=== PATIENT | female | born 2000 | race Caucasian/White ===

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

== ENCOUNTER → 2021-01-17 | Outpatient (CLI) | payer OTHER, MEDICAID ==
[2021-01-17 13:37] LABS: BASO % 0.5 % (0.0-1.0); EOS # 0.3 10^3/uL (0.0-0.5); EOS % 5.7 % (0.0-3.0); HEMATOCRIT 41.6 % (36.0-47.0); HEMOGLOBIN 13.4 g/dl (12.0-15.5); LYMPH # 2.4 10^3/uL (1.5-5.0); LYMPH % 40.9 % (24.0-44.0); MEAN CORPUSCULAR HEMOGLOBIN 27.4 pg (27.0-33.0); MEAN CORPUSCULAR HGB CONC 32.2 g/dl (32.0-36.5); MEAN CORPUSCULAR VOLUME 85.1 fl (80.0-96.0); MONO # 0.3 10^3/uL (0.0-0.8); MONO % 4.6 % (2.0-8.0); NEUTROPHILS # 2.9 10^3/uL (1.5-8.5); NEUTROPHILS % 48.1 % (36.0-66.0); PLATELET COUNT, AUTOMATED 265 10^3/uL (150-450); RED BLOOD COUNT 4.89 10^6/uL (4.00-5.40); WHITE BLOOD COUNT 5.9 10^3/uL (4.0-10.0)
[2021-01-17 14:17] LABS: ALBUMIN 3.4 GM/DL (3.2-5.2); ALT/SGPT 21 U/L (12-78); BILIRUBIN,TOTAL 0.5 MG/DL (0.2-1.0); BLOOD UREA NITROGEN 7 MG/DL (7-18); CALCIUM LEVEL 9.3 MG/DL (8.5-10.1); CARBON DIOXIDE LEVEL 27 MEQ/L (21-32); CHLORIDE LEVEL 105 MEQ/L (98-107); FERRITIN 12 NG/ML (8-252); FREE T4 1.13 NG/DL (0.78-1.33); GLUCOSE, FASTING 115 MG/DL (70-100); IRON (FE) 97 UG/DL (50-170); PERCENT SATURATION 22.7 % (13.2-45.0); SODIUM LEVEL 139 MEQ/L (136-145); THYROID PEROXIDASE ANTIBODY 168.4 U/ML (<60.0); TOTAL IRON BINDING CAPACITY 428 UG/DL (250-450); TOTAL PROTEIN 6.8 GM/DL (6.4-8.2)
[2021-01-17 14:47] LABS: HEMOGLOBIN A1c 5.4 %
== END ==
LOC: M PLALAB 09:27
PROVIDERS: ATTEND Pediatrics
DX: R00.2 Palpitations (principal); E11.9 Type 2 diabetes mellitus without complications; K90.0 Celiac disease

== ENCOUNTER → 2021-03-29 | Outpatient (CLI) | payer OTHER, MEDICAID ==
[2021-03-29 13:17] LABS: HEMATOCRIT 43.5 % (36.0-47.0); HEMOGLOBIN 14.1 g/dl (12.0-15.5); MEAN CORPUSCULAR HEMOGLOBIN 28.2 pg (27.0-33.0); MEAN CORPUSCULAR HGB CONC 32.4 g/dl (32.0-36.5); PLATELET COUNT, AUTOMATED 303 10^3/uL (150-450); WHITE BLOOD COUNT 5.8 10^3/uL (4.0-10.0)
[2021-03-29 13:49] LABS: PERCENT SATURATION 26.1 % (13.2-45.0)
== END ==
LOC: M PLALAB 12:03
PROVIDERS: ATTEND Internal Medicine Gastroenterology
DX: R10.9 Unspecified abdominal pain (principal); R12 Heartburn; K90.0 Celiac disease

== ENCOUNTER → 2021-06-03 | Outpatient (REF) | payer OTHER, MEDICAID | LOC: M LAB REF 11:23 | PROVIDERS: ATTEND Pediatrics | DX: R09.81 Nasal congestion (principal) ==

== ENCOUNTER 2021-06-07 07:57 | Outpatient (CLI) | payer OTHER, MEDICAID ==
[~2021-06-07 07:57] MED LIST changes: +ALBUTEROL 90 MCG/ACT 8GM HFA INHALER INH PRN; +ALBUTEROL SULFATE 2.5 MG/0.5 ML INH NEB SOLN INH PRN; +EPINEPHrine INJ 1 MG/ML 1ML AMP IM PRN; -GASTROGRAFIN SOLUTION 30ML (Q9963) As Ordered ONE; -ISOVUE-370 76% 100ML VIAL As Ordered ONE; +NS 1,000 ML IV SCH; +diphenhydrAMINE 50MG/ML VIAL (J1200) IV PRN; +methylPREDNISolone 125MG 2ML VIAL IV PRN
[2021-06-07] MEDS ORDERED: CASIRIVIMAB/IMDEVIMAB 1,200 MG in NS 250 ML IV ONE (08:00)
[2021-06-07] MEDS ORDERED: CASIRIVIMAB (REGN10933) 600 MG, IMDEVIMAB (REGN10987) 600 MG in NS 250 ML IV ONE (08:00)
[2021-06-07] MEDS ORDERED: ACETAMINOPHEN TAB 650MG DOSE (2X325MG) PO ONE (08:00)
[2021-06-07 08:23] VITALS: BP 132/82
[2021-06-07 09:40] VITALS: BP 122/73
[2021-06-07 10:08] VITALS: BP 124/76
[2021-06-07 11:16] VITALS: BP 128/68
== END 2021-06-07 11:10 | disposition home or self-care (01) ==
LOC: M OPCLI4PR 07:57 → M MS4PR 08:11 → M OPCLI4PR 11:10
PROVIDERS: ATTEND Pediatrics
DX: U07.1 COVID-19 (principal)

== ENCOUNTER → 2021-06-10 | Outpatient (REF) | payer OTHER, MEDICAID | LOC: M LAB REF 16:54 | PROVIDERS: ATTEND Internal Medicine Nephrology | DX: E83.42 Hypomagnesemia (principal) ==

== ENCOUNTER → 2021-08-11 | Outpatient (CLI) | payer OTHER, MEDICAID ==
[2021-08-11 10:58] LABS: BASO % 0.4 % (0.0-1.0); EOS # 0.4 10^3/uL (0.0-0.5); HEMATOCRIT 44.2 % (36.0-47.0); HEMOGLOBIN 14.2 g/dl (12.0-15.5); LYMPH # 2.7 10^3/uL (1.5-5.0); LYMPH % 36.8 % (24.0-44.0); MEAN CORPUSCULAR HEMOGLOBIN 28.4 pg (27.0-33.0); MEAN CORPUSCULAR HGB CONC 32.1 g/dl (32.0-36.5); MEAN CORPUSCULAR VOLUME 88.4 fl (80.0-96.0); MONO # 0.3 10^3/uL (0.0-0.8); MONO % 3.9 % (2.0-8.0); NEUTROPHILS # 3.9 10^3/uL (1.5-8.5); NEUTROPHILS % 52.6 % (36.0-66.0); PLATELET COUNT, AUTOMATED 296 10^3/uL (150-450); WHITE BLOOD COUNT 7.4 10^3/uL (4.0-10.0)
[2021-08-11 11:16] LABS: HEMOGLOBIN A1c 5.6 %
[2021-08-11 11:33] LABS: ALBUMIN 3.4 GM/DL (3.2-5.2); ALT/SGPT 23 U/L (12-78); BILIRUBIN,TOTAL 0.6 MG/DL (0.2-1.0); BLOOD UREA NITROGEN 12 MG/DL (7-18); CALCIUM LEVEL 9.2 MG/DL (8.5-10.1); CARBON DIOXIDE LEVEL 28 MEQ/L (21-32); CHLORIDE LEVEL 104 MEQ/L (98-107); CREATININE FOR GFR 0.59 MG/DL (0.55-1.30); FERRITIN 15 NG/ML (8-252); FREE T4 1.17 NG/DL (0.78-1.33); GLUCOSE, FASTING 89 MG/DL (70-100); IRON (FE) 80 UG/DL (50-170); POTASSIUM SERUM 4.5 MEQ/L (3.5-5.1); SODIUM LEVEL 138 MEQ/L (136-145); TOTAL PROTEIN 7.3 GM/DL (6.4-8.2)
== END ==
LOC: M LAB 09:41
PROVIDERS: ATTEND Pediatrics
DX: K90.0 Celiac disease (principal); E06.9 Thyroiditis, unspecified; E08.21 Diabetes mellitus due to underlying condition with diabetic nephropathy; E61.1 Iron deficiency

== ENCOUNTER → 2021-12-18 | Outpatient (REF) | payer OTHER | LOC: M PLALAB 09:59 | PROVIDERS: ATTEND Advanced Practice Midwife | DX: N39.9 Disorder of urinary system, unspecified (principal) ==

== ENCOUNTER → 2021-12-19 | Outpatient (REF) | payer SELFPAY | LOC: M SFHCWAGY 11:05 | PROVIDERS: ATTEND Advanced Practice Midwife | DX: R30.0 Dysuria (principal) ==

== ENCOUNTER → 2022-02-20 | Outpatient (CLI) | payer BC, MEDICAID ==
[~2022-02-20] MED LIST changes: -ALBUTEROL 90 MCG/ACT 8GM HFA INHALER INH PRN; -ALBUTEROL SULFATE 2.5 MG/0.5 ML INH NEB SOLN INH PRN; +CETI-24; -EPINEPHrine INJ 1 MG/ML 1ML AMP IM PRN; +ESOM40CA35; +LOSA25TA13; +METF500T13 PO; +METO1TAB7; +MONT10TA97; -NS 1,000 ML IV SCH; +SETL1TAB; -diphenhydrAMINE 50MG/ML VIAL (J1200) IV PRN; -methylPREDNISolone 125MG 2ML VIAL IV PRN
[2022-02-20 17:12] LABS: BASO # 0.1 10^3/uL (0.0-0.2); BASO % 0.8 % (0.0-1.0); EOS # 0.5 10^3/uL (0.0-0.5); EOS % 5.9 % (0.0-3.0); HEMATOCRIT 42.6 % (36.0-47.0); HEMOGLOBIN 13.6 g/dl (12.0-15.5); LYMPH # 3.5 10^3/uL (1.5-5.0); LYMPH % 44.8 % (24.0-44.0); MEAN CORPUSCULAR HEMOGLOBIN 27.5 pg (27.0-33.0); MEAN CORPUSCULAR HGB CONC 31.9 g/dl (32.0-36.5); MEAN CORPUSCULAR VOLUME 86.2 fl (80.0-96.0); MONO # 0.5 10^3/uL (0.0-0.8); MONO % 6.7 % (2.0-8.0); NEUTROPHILS # 3.2 10^3/uL (1.5-8.5); NEUTROPHILS % 41.7 % (36.0-66.0); PLATELET COUNT, AUTOMATED 303 10^3/uL (150-450); RED BLOOD COUNT 4.94 10^6/uL (4.00-5.40); WHITE BLOOD COUNT 7.8 10^3/uL (4.0-10.0)
[2022-02-20 17:45] LABS: ALBUMIN 3.6 GM/DL (3.2-5.2); ALT/SGPT 24 U/L (12-78); BILIRUBIN,TOTAL 0.4 MG/DL (0.2-1.0); BLOOD UREA NITROGEN 9 MG/DL (7-18); C REACTIVE PROTEIN QUANTITATIV 0.99 MG/DL (0.00-0.30); CALCIUM LEVEL 10.1 MG/DL (8.5-10.1); CARBON DIOXIDE LEVEL 26 MEQ/L (21-32); CHLORIDE LEVEL 106 MEQ/L (98-107); CREATININE FOR GFR 0.58 MG/DL (0.55-1.30); FREE T4 1.03 NG/DL (0.78-1.33); GLUCOSE, FASTING 96 MG/DL (70-100); IRON (FE) 88 UG/DL (50-170); PERCENT SATURATION 19.8 % (13.2-45.0); POTASSIUM SERUM 4.4 MEQ/L (3.5-5.1); SODIUM LEVEL 140 MEQ/L (136-145); TOTAL IRON BINDING CAPACITY 445 UG/DL (250-450); TOTAL PROTEIN 7.1 GM/DL (6.4-8.2)
== END ==
LOC: M PLALAB 14:37
PROVIDERS: ATTEND Physician Assistant
DX: K90.0 Celiac disease (principal); J30.2 Other seasonal allergic rhinitis; I47.9 Paroxysmal tachycardia, unspecified; R79.89 Other specified abnormal findings of blood chemistry

== ENCOUNTER → 2022-02-20 | Outpatient (CLI) | payer BC, MEDICAID | LOC: M PLALAB 14:39 | PROVIDERS: ATTEND Physician Assistant | DX: E11.65 Type 2 diabetes mellitus with hyperglycemia (principal) ==

== ENCOUNTER → 2022-03-17 | Outpatient (CLI) | payer OTHER, MEDICAID ==
[~2022-03-17] MED LIST changes: +CLAR5TAB11 PO
== END ==
LOC: M LABSMTC 10:58
PROVIDERS: ATTEND Anesthesiology
DX: Z01.812 Encounter for preprocedural laboratory examination (principal)

== ENCOUNTER 2022-03-21 06:11 | Day surgery (SDC) | payer MEDICAID, OTHER ==
[~2022-03-21] VITALS: Ht 160 cm; Wt 81.2 kg
[2022-03-21] MEDS ORDERED: LR 1,000 ML IV SCH ×3 (06:45→09:45)
[2022-03-21] MEDS ORDERED: LIDOCAINE W/EPINEPHRINE 1% 20ML VIAL As Ordered ONE (07:14)
[2022-03-21] MEDS ORDERED: LIDOCAINE 2% 100MG/5ML SDV (FOR ANES.) As Ordered ONE (07:49)
[2022-03-21] MEDS ORDERED: ROCURONIUM BROMIDE 50 MG/5 ML VIAL As Ordered ONE (07:49)
[2022-03-21] MEDS ORDERED: dexameTHASONE 4 MG/ML 1ML VIAL (J1100 PER 1MG) As Ordered ONE (07:49)
[2022-03-21] MEDS ORDERED: MIDAZOLAM INJ 2MG/2ML VIAL (J2250 PER 1MG) As Ordered ONE (07:49)
[2022-03-21] MEDS ORDERED: ONDANSETRON 4MG 2ML VIAL As Ordered ONE (07:49)
[2022-03-21] MEDS ORDERED: fentaNYL 250 MCG/5 ML INJECTION As Ordered ONE (07:49)
[2022-03-21] MEDS ORDERED: SUGAMMADEX SODIUM 500 MG/5 ML VIAL (BRIDION) As Ordered ONE (07:49)
[2022-03-21] MEDS ORDERED: PHENYLephrine 500MCG 5ML (100MCG/ML) SYRINGE As Ordered ONE (07:49)
[2022-03-21] MEDS ORDERED: propofoL 200 MG/20 ML VIAL As Ordered ONE (07:49)
[2022-03-21] MEDS ORDERED: OXYMETAZOLINE 0.05% NASAL SPRAY (AFRIN) As Ordered ONE (08:05)
[2022-03-21] MEDS ORDERED: fentaNYL 100 MCG/2 ML INJECTION IV PRN (08:15)
[2022-03-21] MEDS ORDERED: ONDANSETRON 4MG 2ML VIAL IV PRN (08:15)
[2022-03-21] MEDS ORDERED: HYDROMORPHONE HCL 0.5 MG/ 0.5 ML SYRINGE (J1170 PER 1) IV PRN (08:15)
[2022-03-21] MEDS ORDERED: oxyCODONE 5MG TAB PO PRN (08:15)
[2022-03-21] MEDS ORDERED: LIDOCAINE 5% OINT 30GM TUBE As Ordered ONE (08:18)
[2022-03-21 09:26] VITALS: BP 139/82
== END 2022-03-21 09:40 | disposition home or self-care (01) ==
LOC: M SDC 06:11
PROVIDERS: ATTEND Dentist Oral and Maxillofacial Surgery
DX: K01.1 Impacted teeth (principal); K21.9 Gastro-esophageal reflux disease without esophagitis; E11.9 Type 2 diabetes mellitus without complications; Z79.899 Other long term (current) drug therapy; F81.9 Developmental disorder of scholastic skills, unspecified; Z91.010 Allergy to peanuts; Z91.018 Allergy to other foods; Z79.84 Long term (current) use of oral hypoglycemic drugs; F41.9 Anxiety disorder, unspecified
CPT/HCPCS: 81025; 88300; D7220; D9223; J1100; J2250; J2370; J2405; J3010

== ENCOUNTER → 2022-05-21 | Outpatient (REF) | payer BC | LOC: M SFHCPLAZ 09:53 | PROVIDERS: ATTEND Physician Assistant | DX: R19.7 Diarrhea, unspecified (principal) ==

== ENCOUNTER → 2022-05-22 | Outpatient (CLI) | payer BC, MEDICAID ==
[~2022-05-22] MED LIST changes: +GASTROGRAFIN SOLUTION 30ML (Q9963) As Ordered ONE; +ISOVUE-370 76% 100ML VIAL As Ordered ONE
== END ==
LOC: M RAD 12:01
PROVIDERS: ATTEND Physician Assistant
DX: R19.7 Diarrhea, unspecified (principal); R10.9 Unspecified abdominal pain

== ENCOUNTER → 2022-06-17 | Outpatient (CLI) | payer BC, MEDICAID ==
[~2022-06-17] MED LIST changes: -GASTROGRAFIN SOLUTION 30ML (Q9963) As Ordered ONE; -ISOVUE-370 76% 100ML VIAL As Ordered ONE
[2022-06-17 17:58] LABS: BASO # 0.1 10^3/uL (0.0-0.2); BASO % 0.6 % (0.0-1.0); EOS # 0.4 10^3/uL (0.0-0.5); EOS % 5.4 % (0.0-3.0); HEMATOCRIT 42.5 % (36.0-47.0); HEMOGLOBIN 13.4 g/dl (12.0-15.5); LYMPH # 3.4 10^3/uL (1.5-5.0); LYMPH % 43.8 % (24.0-44.0); MEAN CORPUSCULAR HEMOGLOBIN 27.6 pg (27.0-33.0); MEAN CORPUSCULAR HGB CONC 31.5 g/dl (32.0-36.5); MEAN CORPUSCULAR VOLUME 87.6 fl (80.0-96.0); MONO # 0.4 10^3/uL (0.0-0.8); MONO % 5.5 % (2.0-8.0); NEUTROPHILS # 3.4 10^3/uL (1.5-8.5); NEUTROPHILS % 44.4 % (36.0-66.0); PLATELET COUNT, AUTOMATED 345 10^3/uL (150-450); RED BLOOD COUNT 4.85 10^6/uL (4.00-5.40); WHITE BLOOD COUNT 7.8 10^3/uL (4.0-10.0)
[2022-06-17 19:03] LABS: ALBUMIN 3.3 GM/DL (3.2-5.2); ALT/SGPT 24 U/L (12-78); BILIRUBIN,TOTAL 0.3 MG/DL (0.2-1.0); BLOOD UREA NITROGEN 13 MG/DL (7-18); CALCIUM LEVEL 9.4 MG/DL (8.5-10.1); CARBON DIOXIDE LEVEL 25 MEQ/L (21-32); CHLORIDE LEVEL 103 MEQ/L (98-107); FREE T3 2.7 PG/ML (2.9-4.5); GLUCOSE, FASTING 129 MG/DL (70-100); IRON (FE) 51 UG/DL (50-170); PERCENT SATURATION 10.1 % (13.2-45.0); POTASSIUM SERUM 4.5 MEQ/L (3.5-5.1); SODIUM LEVEL 138 MEQ/L (136-145); TOTAL IRON BINDING CAPACITY 505 UG/DL (250-450); TOTAL PROTEIN 7.5 GM/DL (6.4-8.2)
[2022-06-17 19:37] LABS: TOTAL 25(OH) VITAMIN D 28.3 NG/ML (30.0-100.0); VITAMIN B12 LEVEL 207 PG/ML (247-911)
== END ==
LOC: M PLALAB 16:01
PROVIDERS: ATTEND Physician Assistant
DX: R30.0 Dysuria (principal)

== ENCOUNTER → 2022-07-31 | Outpatient (CLI) | payer BC, MEDICAID ==
[~2022-07-31] MED LIST changes: +E-Z-GAS II EFFERVESCENT PACKET (SODIUM BICARB./CITRIC ACID/SIMETHICONE) As Ordered ONE; +E-Z-HD 98% w/w 340GM SUSP BTL As Ordered ONE; +E-Z-PAQUE 96% w/w SUSP 176GM BTL As Ordered ONE
== END ==
LOC: M RAD 08:00
PROVIDERS: ATTEND Physician Assistant
DX: R10.9 Unspecified abdominal pain (principal)

== ENCOUNTER → 2022-08-18 | Outpatient (CLI) | payer BC, MEDICAID ==
[~2022-08-18] MED LIST changes: -E-Z-GAS II EFFERVESCENT PACKET (SODIUM BICARB./CITRIC ACID/SIMETHICONE) As Ordered ONE; -E-Z-HD 98% w/w 340GM SUSP BTL As Ordered ONE; -E-Z-PAQUE 96% w/w SUSP 176GM BTL As Ordered ONE
[2022-08-18 23:35] LABS: CLOSTRIDIUM DIFFICILE PCR NEGATIVE (NEGATIVE)
== END ==
LOC: M LAB 15:53
PROVIDERS: ATTEND Internal Medicine Gastroenterology
DX: K90.0 Celiac disease (principal); R19.7 Diarrhea, unspecified; K31.89 Other diseases of stomach and duodenum; K44.9 Diaphragmatic hernia without obstruction or gangrene; R12 Heartburn; D50.9 Iron deficiency anemia, unspecified; E55.9 Vitamin D deficiency, unspecified; E53.8 Deficiency of other specified B group vitamins

== ENCOUNTER → 2022-08-28 | Outpatient (CLI) | payer BC, MEDICAID | LOC: M RAD 07:37 | PROVIDERS: ATTEND Physician Assistant | DX: R10.9 Unspecified abdominal pain (principal) ==

== ENCOUNTER → 2022-09-12 | Outpatient (CLI) | payer BC, MEDICAID | LOC: M PLAIMG 12:08 | PROVIDERS: ATTEND Physician Assistant | DX: Z01.818 Encounter for other preprocedural examination (principal) ==

== ENCOUNTER → 2022-09-15 | Outpatient (REF) | payer BC, MEDICAID ==
[2022-09-15 11:49] LABS: APPEARANCE, URINE MANUAL HAZY (CLEAR); COLOR, URINE MANUAL YELLOW (YELLOW)
[2022-09-15 11:50] LABS: GLUCOSE, URINE (UA) MANUAL NEGATIVE (NEGATIVE); KETONE, URINE MANUAL 1+ mg/dL (NEGATIVE); PROTEIN, URINE MANUAL 1+ mg/dL (NEGATIVE)
[2022-09-15 11:51] LABS: BILIRUBIN, URINE MANUAL NEGATIVE (NEGATIVE); BLOOD URINE MANUAL POSITIVE (NEGATIVE); LEUKOCYTE ESTERASE, URINE MAN TRACE (NEGATIVE); NITRITE, URINE MANUAL NEGATIVE (NEGATIVE); UROBILINOGEN, URINE MANUAL NORMAL (NORMAL)
[2022-09-15 12:17] LABS: BACTERIA, URINE SMALL AMOUNT; HYALINE CAST, URINE NONE SEEN /lpf (0-1); RBC, URINE 15-20 /hpf (0-3); SQUAMOUS EPITHELIAL CELL URINE MOD AMOUNT /hpf (SMALL AMT)
[2022-09-15 12:18] LABS: MUCUS, URINE MOD AMOUNT (NEGATIVE)
== END ==
LOC: M SMT 10:14
PROVIDERS: ATTEND Physician Assistant
DX: Z01.818 Encounter for other preprocedural examination (principal)

== ENCOUNTER → 2022-09-21 | Outpatient (CLI) | payer BC, MEDICAID ==
[~2022-09-21] MED LIST changes: +ALLE10TA62 PO; +CLAR10CA3 PO; +CYAN100050 PO; +FAMO20TA PO; +HYDR-3713 PO; +HYOS0.374 PO; +IBUP1TAB6 PO; +IRON65TA2 PO; +JOLETAB PO; -LOSA25TA13; +LOSA25TA13 PO; -METO1TAB7; +METO1TAB7 PO; -MONT10TA97; +MONT10TA97 PO; +PANT40TA29 PO; +POTA10808 PO; +TAMS1CAP17 PO; +VITA200032 PO
== END ==
LOC: M LABSMTC 11:45
PROVIDERS: ATTEND Anesthesiology
DX: Z01.818 Encounter for other preprocedural examination (principal)

== ENCOUNTER 2022-09-25 07:15 | Day surgery (SDC) | payer BC, MEDICAID ==
[~2022-09-25] VITALS: Ht 160 cm; Wt 77.6 kg
[~2022-09-25 07:15] MED LIST changes: +ceFAZolin SOD 2 GM in IV 1 EA IV ONE
[2022-09-25] MEDS ORDERED: LIDOCAINE 4% CREAM 5GM (LMX4) TOP ONE (07:55)
[2022-09-25] MEDS ORDERED: LR 1,000 ML IV SCH (08:00)
[2022-09-25] MEDS ORDERED: INSULIN LISPRO (NovoLOG) PER UNIT SC PRN (08:00)
[2022-09-25] MEDS ORDERED: ACETAMINOPHEN 1000MG 100ML IV BAG As Ordered ONE (09:37)
[2022-09-25] MEDS ORDERED: fentaNYL 100 MCG/2 ML INJECTION As Ordered ONE (09:37)
[2022-09-25] MEDS ORDERED: MIDAZOLAM INJ 2MG/2ML VIAL As Ordered ONE (09:37)
[2022-09-25] MEDS ORDERED: HYDR-3713 PO (09:55)
[2022-09-25] MEDS ORDERED: TAMS1CAP17 PO (09:55)
[2022-09-25] MEDS ORDERED: propofoL 200 MG/20 ML VIAL As Ordered ONE (09:57)
[2022-09-25] MEDS ORDERED: ONDANSETRON 4MG 2ML VIAL As Ordered ONE (09:59)
[2022-09-25] MEDS ORDERED: LIDOCAINE 2% 100MG/5ML SDV (FOR ANES.) As Ordered ONE (10:01)
[2022-09-25 10:45] VITALS: BP 118/66
== END 2022-09-25 10:45 | disposition home or self-care (01) ==
LOC: M SDC 07:15
PROVIDERS: ATTEND Urology
DX: N20.0 Calculus of kidney (principal); K21.9 Gastro-esophageal reflux disease without esophagitis; J45.909 Unspecified asthma, uncomplicated; Z91.010 Allergy to peanuts; Z91.018 Allergy to other foods
CPT/HCPCS: 50590; 74018; 81025; J0131; J0690; J1100; J2250; J2405; J3010

== ENCOUNTER → 2022-09-29 | Outpatient (CLI) | payer BC, MEDICAID ==
[~2022-09-29] MED LIST changes: -ceFAZolin SOD 2 GM in IV 1 EA IV ONE
== END ==
LOC: M PLAIMG 12:50
PROVIDERS: ATTEND Physician Assistant
DX: N20.0 Calculus of kidney (principal)

== ENCOUNTER → 2022-09-30 | Outpatient (REF) | payer BC, MEDICAID ==
[2022-10-01 11:10] LABS: APPEARANCE, URINE MANUAL HAZY (CLEAR); BILIRUBIN, URINE MANUAL NEGATIVE (NEGATIVE); COLOR, URINE MANUAL YELLOW (YELLOW); GLUCOSE, URINE (UA) MANUAL NEGATIVE (NEGATIVE); KETONE, URINE MANUAL 1+ mg/dL (NEGATIVE); NITRITE, URINE MANUAL NEGATIVE (NEGATIVE); PROTEIN, URINE MANUAL TRACE mg/dL (NEGATIVE); UROBILINOGEN, URINE MANUAL NORMAL (NORMAL)
[2022-10-01 11:11] LABS: BLOOD URINE MANUAL POSITIVE (NEGATIVE); LEUKOCYTE ESTERASE, URINE MAN POSITIVE (NEGATIVE)
[2022-10-01 11:45] LABS: WBC, URINE 40-50 /hpf (0-3)
[2022-10-01 11:46] LABS: RBC, URINE 20-30 /hpf (0-3); SQUAMOUS EPITHELIAL CELL URINE LARGE AMOUNT /hpf (SMALL AMT)
[2022-10-01 11:47] LABS: BACTERIA, URINE SMALL AMOUNT; HYALINE CAST, URINE NONE SEEN /lpf (0-1)
== END ==
LOC: M SMT 09:15
PROVIDERS: ATTEND Physician Assistant
DX: R30.0 Dysuria (principal)

== ENCOUNTER → 2022-10-03 | Outpatient (REF) | payer BC, MEDICAID ==
[2022-10-08 11:09] LABS: CA Oxalate Dihy 100 % (.); Size 3x6 mm (.)
== END ==
LOC: M SMT 12:56
PROVIDERS: ATTEND Physician Assistant
DX: N20.0 Calculus of kidney (principal)

== ENCOUNTER → 2022-10-05 | Outpatient (CLI) | payer BC, MEDICAID | LOC: M LABSMTC 11:15 | PROVIDERS: ATTEND Anesthesiology | DX: Z01.812 Encounter for preprocedural laboratory examination (principal); Z11.52 Encounter for screening for COVID-19 ==

== ENCOUNTER 2022-10-09 09:59 | Day surgery (SDC) | payer BC, MEDICAID ==
[~2022-10-09] VITALS: Ht 160 cm; Wt 77.6 kg
[~2022-10-09 09:59] MED LIST changes: +ceFAZolin SOD 2 GM in IV 1 EA IV ONE
[2022-10-09] MEDS ORDERED: MIDAZOLAM INJ 2MG/2ML VIAL As Ordered ONE (10:12)
[2022-10-09] MEDS ORDERED: propofoL 500 MG/50 ML VIAL As Ordered ONE (10:12)
[2022-10-09] MEDS ORDERED: fentaNYL 100 MCG/2 ML INJECTION As Ordered ONE (10:12)
[2022-10-09] MEDS ORDERED: LIDOCAINE 2% 100MG/5ML SDV (FOR ANES.) As Ordered ONE (10:12)
[2022-10-09] MEDS ORDERED: OXYB5TAB10 PO (11:39)
[2022-10-09] MEDS ORDERED: PERCOCET PO (11:39)
[2022-10-09 12:48] VITALS: BP 116/67
== END 2022-10-09 12:54 | disposition home or self-care (01) ==
LOC: M SDC 09:59
PROVIDERS: ATTEND Urology
DX: N20.0 Calculus of kidney (principal); E11.9 Type 2 diabetes mellitus without complications; K21.9 Gastro-esophageal reflux disease without esophagitis; J45.998 Other asthma; Z79.899 Other long term (current) drug therapy; Z79.84 Long term (current) use of oral hypoglycemic drugs; Z91.018 Allergy to other foods; Z91.010 Allergy to peanuts; F41.9 Anxiety disorder, unspecified
CPT/HCPCS: 50590; 74018; 81025; J0690; J2250; J3010

== ENCOUNTER → 2022-10-13 | Outpatient (CLI) | payer BC, MEDICAID ==
[~2022-10-13] MED LIST changes: +OXYB5TAB10 PO; +PERCOCET PO; -ceFAZolin SOD 2 GM in IV 1 EA IV ONE
== END ==
LOC: M PLAIMG 14:10
PROVIDERS: ATTEND Urology
DX: N20.0 Calculus of kidney (principal)

== ENCOUNTER → 2022-10-17 | Outpatient (REF) | payer BC, MEDICAID | LOC: M SFHCPLAZ 16:48 | PROVIDERS: ATTEND Physician Assistant | DX: R10.9 Unspecified abdominal pain (principal) ==

== ENCOUNTER → 2022-10-24 | Outpatient (CLI) | payer BC, MEDICAID | LOC: M PLAIMG 12:01 → M PLALAB 12:01 | PROVIDERS: ATTEND Physician Assistant | DX: N20.0 Calculus of kidney (principal) ==

== ENCOUNTER → 2022-11-11 | Outpatient (CLI) | payer BC, MEDICAID ==
[2022-11-11 13:51] LABS: BASO % 0.5 % (0.0-1.0); EOS # 0.3 10^3/uL (0.0-0.5); HEMATOCRIT 41.8 % (36.0-47.0); HEMOGLOBIN 13.6 g/dl (12.0-15.5); LYMPH # 2.9 10^3/uL (1.5-5.0); LYMPH % 40.2 % (24.0-44.0); MEAN CORPUSCULAR HEMOGLOBIN 28.5 pg (27.0-33.0); MEAN CORPUSCULAR HGB CONC 32.5 g/dl (32.0-36.5); MEAN CORPUSCULAR VOLUME 87.6 fl (80.0-96.0); MONO # 0.3 10^3/uL (0.0-0.8); MONO % 4.7 % (2.0-8.0); NEUTROPHILS # 3.7 10^3/uL (1.5-8.5); NEUTROPHILS % 50.3 % (36.0-66.0); PLATELET COUNT, AUTOMATED 350 10^3/uL (150-450); RED BLOOD COUNT 4.77 10^6/uL (4.00-5.40); WHITE BLOOD COUNT 7.3 10^3/uL (4.0-10.0)
[2022-11-11 14:20] LABS: IRON (FE) 75 UG/DL (50-170); PERCENT SATURATION 18.6 % (13.2-45.0); TOTAL IRON BINDING CAPACITY 404 UG/DL (250-425)
[2022-11-11 14:23] LABS: ALBUMIN 3.7 G/DL (3.2-5.2); ALKALINE PHOSPHATASE 51 U/L (46-116); ALT/SGPT 11 U/L (7.0-40); AST/SGOT 14 U/L (<34); BILIRUBIN,TOTAL 0.5 MG/DL (0.3-1.2); BLOOD UREA NITROGEN 9 MG/DL (9-23); CARBON DIOXIDE LEVEL 25 MMOL/L (20-31); CHLORIDE LEVEL 103 MMOL/L (98-107); FREE T4 1.28 NG/DL (0.89-1.76); GLOMERULAR FILTRATION RATE > 60.0 (>60); GLUCOSE, FASTING 117 MG/DL (60-100); SODIUM LEVEL 137 MMOL/L (136-145); THYROID STIMULATING HORMONE 1.664 uIU/ML (0.55-4.78); TOTAL PROTEIN 7.3 G/DL (5.7-8.2); VITAMIN B12 LEVEL 624 PG/ML (211-911)
[2022-11-11 14:54] LABS: HEMOGLOBIN A1c 5.6 % (4.0-6.0)
== END ==
LOC: M PLALAB 11:46
PROVIDERS: ATTEND Physician Assistant
DX: R10.9 Unspecified abdominal pain (principal)

== ENCOUNTER → 2022-11-14 | Outpatient (CLI) | payer BC, MEDICAID | LOC: M PLAIMG 14:44 | PROVIDERS: ATTEND Physician Assistant | DX: R10.9 Unspecified abdominal pain (principal) ==

== ENCOUNTER → 2022-11-24 | Outpatient (CLI) | payer BC, MEDICAID ==
[2022-11-24 14:41] LABS: RHEUMATOID FACTOR QUANT < 3.5 IU/ML (<14)
== END ==
LOC: M PLALAB 10:20
PROVIDERS: ATTEND Orthopaedic Surgery
DX: M47.894 Other spondylosis, thoracic region (principal)

== ENCOUNTER → 2022-11-28 | Outpatient (REF) | payer BC, MEDICAID | LOC: M SFHCPLAZ 12:56 | PROVIDERS: ATTEND Physician Assistant | DX: R21 Rash and other nonspecific skin eruption (principal) ==

== ENCOUNTER 2022-12-15 07:25 | Outpatient (RCR) | payer BC, MEDICAID | END 2022-12-28 | LOC: M PT 07:25 | PROVIDERS: ATTEND Physician Assistant | DX: M54.6 Pain in thoracic spine (principal) ==

== ENCOUNTER → 2023-02-06 | Outpatient (CLI) | payer BC, MEDICAID ==
[2023-02-06 15:12] LABS: HEMATOCRIT 43.1 % (36.0-47.0); HEMOGLOBIN 13.9 g/dl (12.0-15.5); MEAN CORPUSCULAR HGB CONC 32.3 g/dl (32.0-36.5); MEAN CORPUSCULAR VOLUME 93.1 fl (80.0-96.0); PLATELET COUNT, AUTOMATED 275 10^3/uL (150-450); RED BLOOD COUNT 4.63 10^6/uL (4.00-5.40); WHITE BLOOD COUNT 6.7 10^3/uL (4.0-10.0)
[2023-02-06 15:37] LABS: CHOLESTEROL RISK RATIO 4.84 (<5); HDL CHOLESTEROL 45.2 MG/DL (>40); LDL CHOLESTEROL 121.6 MG/DL (<100); NON-HDL-C 173.8 MG/DL
[2023-02-06 15:38] LABS: FERRITIN 26.5 NG/ML (7.3-270.7); PERCENT SATURATION 15.6 % (13.2-45.0)
[2023-02-06 15:58] LABS: HEMOGLOBIN A1c 5.4 % (4.0-6.0)
== END ==
LOC: M PLALAB 09:46
PROVIDERS: ATTEND Physician Assistant
DX: E11.9 Type 2 diabetes mellitus without complications (principal)

== ENCOUNTER → 2023-03-30 | Outpatient (REF) | payer BC, MEDICAID ==
[~2023-03-30] MED LIST changes: +CYAN-1 PO; -CYAN100050 PO
[2023-03-30 13:27] LABS: APPEARANCE, URINE CLOUDY (CLEAR); BACTERIA, URINE AUTO 1+ (NEGATIVE); BILIRUBIN, URINE AUTO NEGATIVE (NEGATIVE); BLOOD, URINE BLOOD 3+ (NEGATIVE); COLOR, URINE YELLOW (YELLOW); GLUCOSE, URINE (UA) AUTO NEGATIVE (NEGATIVE); KETONE, URINE AUTO NEGATIVE (NEGATIVE); LEUKOCYTE ESTERASE, URINE AUTO 2+ (NEGATIVE); MUCUS, URINE SMALL (NEGATIVE); NITRITE, URINE AUTO NEGATIVE (NEGATIVE); PROTEIN, URINE AUTO 2+ mg/dL (NEGATIVE); RBC, URINE AUTO 6 /HPF (0-3); SQUAMOUS EPITHELIAL CELL UR AU 36 /HPF (0-6); UROBILINOGEN, URINE AUTO 0.2 mg/dL (0.0-2.0); WBC, URINE AUTO 32 /HPF (0-3)
== END ==
LOC: M SMT 12:58
PROVIDERS: ATTEND Physician Assistant
DX: N39.44 Nocturnal enuresis (principal)

== ENCOUNTER → 2023-04-10 | Outpatient (REF) | payer BC, MEDICAID ==
[2023-04-10 13:51] LABS: APPEARANCE, URINE CLEAR (CLEAR); BACTERIA, URINE AUTO NEGATIVE (NEGATIVE); BILIRUBIN, URINE AUTO NEGATIVE (NEGATIVE); BLOOD, URINE BLOOD NEGATIVE (NEGATIVE); COLOR, URINE AMBER (YELLOW); GLUCOSE, URINE (UA) AUTO NEGATIVE (NEGATIVE); KETONE, URINE AUTO NEGATIVE (NEGATIVE); LEUKOCYTE ESTERASE, URINE AUTO NEGATIVE (NEGATIVE); NITRITE, URINE AUTO POSITIVE (NEGATIVE); PROTEIN, URINE AUTO NEGATIVE (NEGATIVE); RBC, URINE AUTO 0 /HPF (0-3); SPECIFIC GRAVITY URINE AUTO 1.012 (1.002-1.035); SQUAMOUS EPITHELIAL CELL UR AU 3 /HPF (0-6); WBC, URINE AUTO 0 /HPF (0-3)
== END ==
LOC: M SMT 13:18
PROVIDERS: ATTEND Physician Assistant
DX: N39.0 Urinary tract infection, site not specified (principal)

== ENCOUNTER → 2023-05-07 | Outpatient (CLI) | payer BC, MEDICAID ==
[2023-05-07 16:15] LABS: BASO # 0.1 10^3/uL (0.0-0.2); BASO % 0.7 % (0.0-1.0); EOS # 0.3 10^3/uL (0.0-0.5); EOS % 4.2 % (0.0-3.0); HEMATOCRIT 43.4 % (36.0-47.0); LYMPH # 3.2 10^3/uL (1.5-5.0); LYMPH % 43.6 % (24.0-44.0); MEAN CORPUSCULAR HEMOGLOBIN 29.1 pg (27.0-33.0); MEAN CORPUSCULAR HGB CONC 32.3 g/dl (32.0-36.5); MEAN CORPUSCULAR VOLUME 90.2 fl (80.0-96.0); MONO # 0.4 10^3/uL (0.0-0.8); MONO % 5.4 % (2.0-8.0); NEUTROPHILS # 3.4 10^3/uL (1.5-8.5); NEUTROPHILS % 45.8 % (36.0-66.0); PLATELET COUNT, AUTOMATED 295 10^3/uL (150-450); RED BLOOD COUNT 4.81 10^6/uL (4.00-5.40); WHITE BLOOD COUNT 7.4 10^3/uL (4.0-10.0)
[2023-05-07 16:30] LABS: HEMOGLOBIN A1c 5.8 % (4.0-6.0)
[2023-05-07 16:32] LABS: LIPASE 40 U/L (12-53)
[2023-05-07 16:35] LABS: ALBUMIN 3.7 G/DL (3.2-5.2); ALKALINE PHOSPHATASE 46 U/L (46-116); ALT/SGPT 35 U/L (7.0-40); AST/SGOT 38 U/L (<34); BILIRUBIN,TOTAL 0.5 MG/DL (0.3-1.2); BLOOD UREA NITROGEN 10 MG/DL (9-23); CALCIUM LEVEL 9.5 MG/DL (8.5-10.1); CARBON DIOXIDE LEVEL 23 MMOL/L (20-31); CHLORIDE LEVEL 104 MMOL/L (98-107); CREATININE FOR GFR 0.53 MG/DL (0.55-1.30); GLOMERULAR FILTRATION RATE > 60.0 (>60); GLUCOSE, FASTING 102 MG/DL (60-100); MAGNESIUM LEVEL 1.4 MG/DL (1.8-2.4); POTASSIUM SERUM 4.7 MMOL/L (3.5-5.1); SODIUM LEVEL 137 MMOL/L (136-145)
[2023-05-07 16:36] LABS: THYROID STIMULATING HORMONE 2.838 uIU/ML (0.55-4.78)
[2023-05-07 16:37] LABS: FERRITIN 41.5 NG/ML (7.3-270.7)
[2023-05-07 16:38] LABS: FREE T4 1.08 NG/DL (0.89-1.76); TOTAL 25(OH) VITAMIN D 44.1 NG/ML (20.0-100.0); VITAMIN B12 LEVEL 766 PG/ML (211-911)
== END ==
LOC: M PLALAB 14:49
PROVIDERS: ATTEND Physician Assistant
DX: R07.9 Chest pain, unspecified (principal)

== ENCOUNTER → 2023-07-02 | Outpatient (CLI) | payer BC, MEDICAID ==
[~2023-07-02] MED LIST changes: -OXYB5TAB10 PO; +OXYB5TAB11 PO
[2023-07-02 16:42] LABS: ALBUMIN 3.5 G/DL (3.2-5.2); BLOOD UREA NITROGEN 10 MG/DL (9-23); CALCIUM LEVEL 9.4 MG/DL (8.5-10.1); CARBON DIOXIDE LEVEL 25 MMOL/L (20-31); CHLORIDE LEVEL 101 MMOL/L (98-107); CREATININE FOR GFR 0.45 MG/DL (0.55-1.30); GLOMERULAR FILTRATION RATE > 60.0 (>60); GLUCOSE, FASTING 175 MG/DL (60-100); MAGNESIUM LEVEL 1.5 MG/DL (1.8-2.4); PHOSPHORUS LEVEL 3.4 MG/DL (2.5-4.9); POTASSIUM SERUM 5.1 MMOL/L (3.5-5.1); SODIUM LEVEL 139 MMOL/L (136-145)
[2023-07-02 17:18] LABS: HEMOGLOBIN A1c 6.1 % (4.0-6.0)
== END ==
LOC: M LAB 14:27
PROVIDERS: ATTEND Physician Assistant
DX: E11.9 Type 2 diabetes mellitus without complications (principal)

== ENCOUNTER → 2023-07-16 | Outpatient (CLI) | payer BC, MEDICAID ==
[2023-07-16 17:19] LABS: ALBUMIN 3.4 G/DL (3.2-5.2); ALKALINE PHOSPHATASE 55 U/L (46-116); ALT/SGPT 32 U/L (7.0-40); AST/SGOT 35 U/L (<34); BILIRUBIN,TOTAL 0.7 MG/DL (0.3-1.2); BLOOD UREA NITROGEN 14 MG/DL (9-23); CALCIUM LEVEL 9.1 MG/DL (8.5-10.1); CARBON DIOXIDE LEVEL 27 MMOL/L (20-31); CHLORIDE LEVEL 102 MMOL/L (98-107); CREATININE FOR GFR 0.51 MG/DL (0.55-1.30); GLOMERULAR FILTRATION RATE > 60.0 (>60); GLUCOSE, FASTING 146 MG/DL (60-100); POTASSIUM SERUM 4.3 MMOL/L (3.5-5.1); SODIUM LEVEL 138 MMOL/L (136-145); TOTAL PROTEIN 6.8 G/DL (5.7-8.2)
== END ==
LOC: M LAB 16:15
PROVIDERS: ATTEND Physician Assistant
DX: Z86.19 Personal history of other infectious and parasitic diseases (principal)

== ENCOUNTER → 2023-08-14 | Outpatient (CLI) | payer BC, MEDICAID | LOC: M RAD 09:12 | PROVIDERS: ATTEND Physician Assistant | DX: K76.0 Fatty (change of) liver, not elsewhere classified (principal) ==

== ENCOUNTER → 2023-08-14 | Outpatient (CLI) | payer BC, MEDICAID | LOC: M LAB 09:14 | PROVIDERS: ATTEND Physician Assistant | DX: R79.89 Other specified abnormal findings of blood chemistry (principal) ==

== ENCOUNTER → 2023-10-06 | Outpatient (REF) | payer BC, MEDICAID ==
[~2023-10-06] MED LIST changes: -OXYB5TAB11 PO; +OXYB5TAB14 PO
[2023-10-07 10:53] LABS: APPEARANCE, URINE HAZY (CLEAR); BACTERIA, URINE AUTO 1+ (NEGATIVE); BILIRUBIN, URINE AUTO NEGATIVE (NEGATIVE); BLOOD, URINE BLOOD NEGATIVE (NEGATIVE); COLOR, URINE YELLOW (YELLOW); GLUCOSE, URINE (UA) AUTO NEGATIVE (NEGATIVE); KETONE, URINE AUTO NEGATIVE (NEGATIVE); LEUKOCYTE ESTERASE, URINE AUTO TRACE (NEGATIVE); MUCUS, URINE SMALL (NEGATIVE); NITRITE, URINE AUTO NEGATIVE (NEGATIVE); PROTEIN, URINE AUTO 2+ mg/dL (NEGATIVE); RBC, URINE AUTO 1 /HPF (0-3); SPECIFIC GRAVITY URINE AUTO 1.026 (1.002-1.035); SQUAMOUS EPITHELIAL CELL UR AU 9 /HPF (0-6); WBC, URINE AUTO 15 /HPF (0-3)
== END ==
LOC: M SFHCWAGY 09:14
PROVIDERS: ATTEND Obstetrics & Gynecology
DX: R35.0 Frequency of micturition (principal)

== ENCOUNTER → 2023-10-09 | Outpatient (REF) | payer BC, MEDICAID, OTHER ==
[~2023-10-09] MED LIST changes: +OXYB5TAB11 PO; -OXYB5TAB14 PO
== END ==
LOC: M SFHCPLAZ 16:54
PROVIDERS: ATTEND Family Medicine
DX: N39.0 Urinary tract infection, site not specified (principal)

== ENCOUNTER → 2023-10-23 | Outpatient (CLI) | payer OTHER, MEDICAID ==
[~2023-10-23] MED LIST changes: -OXYB5TAB11 PO; +OXYB5TAB14 PO
== END ==
LOC: M RAD 14:04
PROVIDERS: ATTEND Physician Assistant
DX: R30.0 Dysuria (principal)

== ENCOUNTER → 2023-11-09 | Outpatient (CLI) | payer OTHER, MEDICAID ==
[2023-11-09 14:04] LABS: APPEARANCE, URINE HAZY (CLEAR); BACTERIA, URINE AUTO 1+ (NEGATIVE); BILIRUBIN, URINE AUTO NEGATIVE (NEGATIVE); BLOOD, URINE BLOOD NEGATIVE (NEGATIVE); COLOR, URINE YELLOW (YELLOW); GLUCOSE, URINE (UA) AUTO 1+ mg/dL (NEGATIVE); KETONE, URINE AUTO NEGATIVE (NEGATIVE); LEUKOCYTE ESTERASE, URINE AUTO 1+ (NEGATIVE); MUCUS, URINE SMALL (NEGATIVE); NITRITE, URINE AUTO NEGATIVE (NEGATIVE); PROTEIN, URINE AUTO 3+ mg/dL (NEGATIVE); RBC, URINE AUTO 1 /HPF (0-3); SPECIFIC GRAVITY URINE AUTO 1.019 (1.002-1.035); SQUAMOUS EPITHELIAL CELL UR AU 6 /HPF (0-6); UROBILINOGEN, URINE AUTO 0.2 mg/dL (0.0-2.0); WBC, URINE AUTO 6 /HPF (0-3)
[2023-11-09 14:26] LABS: HEMATOCRIT 44.6 % (36.0-47.0); HEMOGLOBIN 14.6 g/dl (12.0-15.5); MEAN CORPUSCULAR HEMOGLOBIN 29.9 pg (27.0-33.0); MEAN CORPUSCULAR HGB CONC 32.7 g/dl (32.0-36.5); MEAN CORPUSCULAR VOLUME 91.2 fl (80.0-96.0); PLATELET COUNT, AUTOMATED 290 10^3/uL (150-450); RED BLOOD COUNT 4.89 10^6/uL (4.00-5.40); WHITE BLOOD COUNT 6.3 10^3/uL (4.0-10.0)
[2023-11-09 14:38] LABS: BLOOD UREA NITROGEN 8 MG/DL (9-23); CALCIUM LEVEL 9.1 MG/DL (8.5-10.1); CARBON DIOXIDE LEVEL 23 MMOL/L (20-31); CHLORIDE LEVEL 101 MMOL/L (98-107); CREATININE FOR GFR 0.44 MG/DL (0.55-1.30); GLOMERULAR FILTRATION RATE > 60.0 (>60); GLUCOSE, FASTING 246 MG/DL (60-100); POTASSIUM SERUM 4.7 MMOL/L (3.5-5.1); SODIUM LEVEL 134 MMOL/L (136-145)
== END ==
LOC: M LAB 12:57
PROVIDERS: ATTEND Physician Assistant
DX: Z01.818 Encounter for other preprocedural examination (principal)

== ENCOUNTER → 2023-11-09 | Outpatient (CLI) | payer OTHER, MEDICAID ==
[2023-11-09 14:20] LABS: HEMOGLOBIN A1c 6.7 % (4.0-6.0)
[2023-11-09 14:27] LABS: BASO % 0.5 % (0.0-1.0); EOS # 0.4 10^3/uL (0.0-0.5); EOS % 5.6 % (0.0-3.0); HEMATOCRIT 45.2 % (36.0-47.0); HEMOGLOBIN 14.7 g/dl (12.0-15.5); LYMPH # 2.4 10^3/uL (1.5-5.0); LYMPH % 35.8 % (24.0-44.0); MEAN CORPUSCULAR HEMOGLOBIN 29.6 pg (27.0-33.0); MEAN CORPUSCULAR HGB CONC 32.5 g/dl (32.0-36.5); MEAN CORPUSCULAR VOLUME 90.9 fl (80.0-96.0); MONO # 0.3 10^3/uL (0.0-0.8); MONO % 4.7 % (2.0-8.0); NEUTROPHILS # 3.5 10^3/uL (1.5-8.5); NEUTROPHILS % 53.1 % (36.0-66.0); PLATELET COUNT, AUTOMATED 301 10^3/uL (150-450); RED BLOOD COUNT 4.97 10^6/uL (4.00-5.40); WHITE BLOOD COUNT 6.6 10^3/uL (4.0-10.0)
[2023-11-09 14:38] LABS: ALBUMIN 3.5 G/DL (3.2-5.2); ALKALINE PHOSPHATASE 53 U/L (46-116); ALT/SGPT 35 U/L (7.0-40); AST/SGOT 58 U/L (<34); BLOOD UREA NITROGEN 8 MG/DL (9-23); CALCIUM LEVEL 9.3 MG/DL (8.5-10.1); CARBON DIOXIDE LEVEL 23 MMOL/L (20-31); CHLORIDE LEVEL 101 MMOL/L (98-107); CREATININE FOR GFR 0.44 MG/DL (0.55-1.30); GLOMERULAR FILTRATION RATE > 60.0 (>60); GLUCOSE, FASTING 245 MG/DL (60-100); MAGNESIUM LEVEL 1.4 MG/DL (1.8-2.4); POTASSIUM SERUM 4.9 MMOL/L (3.5-5.1); SODIUM LEVEL 135 MMOL/L (136-145); TOTAL PROTEIN 7.2 G/DL (5.7-8.2)
[2023-11-09 14:41] LABS: FREE T4 1.11 NG/DL (0.89-1.76); THYROID STIMULATING HORMONE 1.853 uIU/ML (0.55-4.78)
== END ==
LOC: M LAB 13:17
PROVIDERS: ATTEND Physician Assistant
DX: Z86.2 Personal history of diseases of the blood and blood-forming organs and certain disorders involving the immune mechanism (principal); R79.89 Other specified abnormal findings of blood chemistry; E87.20 Acidosis, unspecified; E83.42 Hypomagnesemia; E11.9 Type 2 diabetes mellitus without complications

== ENCOUNTER 2023-11-19 06:55 | Day surgery (SDC) | payer OTHER, MEDICAID ==
[~2023-11-19] VITALS: Ht 160 cm; Wt 84.5 kg
[~2023-11-19 06:55] MED LIST changes: -BUSP5TA PO; -FLOM0.4C39 PO; -GABA-284 PO; -OXYC1TAB23 PO
[2023-11-19] MEDS ORDERED: GABA-284 PO (07:44)
[2023-11-19] MEDS ORDERED: BUSP5TA PO (07:44)
[2023-11-19] MEDS: ceFAZolin SOD 2 GM in IV 1 EA IV ONE (07:48)
[2023-11-19] MEDS: LR 1,000 ML IV SCH (07:54)
[2023-11-19] MEDS ORDERED: OXYC1TAB23 PO (08:06)
[2023-11-19] MEDS ORDERED: FLOM0.4C39 PO (08:06)
[2023-11-19] MEDS ORDERED: propofoL 200 MG/20 ML VIAL As Ordered ONE (08:07)
[2023-11-19] MEDS ORDERED: MIDAZOLAM INJ 2MG/2ML VIAL As Ordered ONE (08:07)
[2023-11-19] MEDS ORDERED: ACETAMINOPHEN 1000MG 100ML IV BAG As Ordered ONE (08:07)
[2023-11-19] MEDS ORDERED: fentaNYL 100 MCG/2 ML INJECTION As Ordered ONE (08:07)
[2023-11-19] MEDS ORDERED: LIDOCAINE 2% 100MG/5ML SDV (FOR ANES.) As Ordered ONE (08:07)
[2023-11-19] MEDS ORDERED: dexmedeTOMIDine (4MCG/ML)200MCG/50ML BTL (PRECEDEX) As Ordered ONE (08:07)
[2023-11-19] MEDS ORDERED: ONDANSETRON 4MG 2ML VIAL As Ordered ONE (08:07)
[2023-11-19 08:50] VITALS: BP 137/80; TEMP 98.2; O2SAT 99
== END 2023-11-19 08:53 | disposition home or self-care (01) ==
LOC: M SDC 06:55
PROVIDERS: ATTEND Urology
DX: N20.0 Calculus of kidney (principal); J45.909 Unspecified asthma, uncomplicated; K90.0 Celiac disease; E11.9 Type 2 diabetes mellitus without complications; Z79.899 Other long term (current) drug therapy; I10 Essential (primary) hypertension; Z90.49 Acquired absence of other specified parts of digestive tract
CPT/HCPCS: 50590; 74018; 81025; J0131; J0690; J2250; J2405; J3010

== ENCOUNTER → 2023-11-19 | Outpatient (CLI) | payer OTHER, MEDICAID ==
[~2023-11-19] MED LIST changes: +BISO5TAB14 PO; +BUSP5TA PO; +FLOM0.4C39 PO; +GABA-284 PO; +OXYC1TAB23 PO
== END ==
LOC: M RAD 06:11
PROVIDERS: ATTEND Physician Assistant
DX: Z01.818 Encounter for other preprocedural examination (principal)

== ENCOUNTER → 2023-12-11 | Outpatient (CLI) | payer OTHER, MEDICAID ==
[~2023-12-11] MED LIST changes: +BUSP5TA PO; +FLOM0.4C39 PO; +GABA-284 PO; +OXYC1TAB23 PO
== END ==
LOC: M PLAIMG 11:30 → M PLALAB 11:30
PROVIDERS: ATTEND Physician Assistant
DX: N20.0 Calculus of kidney (principal); R79.89 Other specified abnormal findings of blood chemistry; E83.42 Hypomagnesemia; Q93.89 Other deletions from the autosomes

== ENCOUNTER → 2024-02-06 | Outpatient (CLI) | payer OTHER, MEDICAID ==
[2024-02-06 11:45] LABS: HEMOGLOBIN A1c 6.5 % (4.0-6.0)
[2024-02-06 11:59] LABS: ALBUMIN 3.3 G/DL (3.2-5.2); ALKALINE PHOSPHATASE 53 U/L (46-116); ALT/SGPT 28 U/L (7.0-40); AST/SGOT 37 U/L (<34); BILIRUBIN,TOTAL 0.7 MG/DL (0.3-1.2); BLOOD UREA NITROGEN 10 MG/DL (9-23); CALCIUM LEVEL 9.6 MG/DL (8.5-10.1); CARBON DIOXIDE LEVEL 25 MMOL/L (20-31); CHLORIDE LEVEL 106 MMOL/L (98-107); CREATININE FOR GFR 0.61 MG/DL (0.55-1.30); GLOMERULAR FILTRATION RATE > 60.0 (>60); GLUCOSE, FASTING 107 MG/DL (60-100); MAGNESIUM LEVEL 1.6 MG/DL (1.8-2.4); POTASSIUM SERUM 4.8 MMOL/L (3.5-5.1); SODIUM LEVEL 141 MMOL/L (136-145); TOTAL PROTEIN 6.9 G/DL (5.7-8.2)
== END ==
LOC: M LAB 09:56
PROVIDERS: ATTEND Physician Assistant
DX: E11.9 Type 2 diabetes mellitus without complications (principal); R79.89 Other specified abnormal findings of blood chemistry; E83.42 Hypomagnesemia; Q93.89 Other deletions from the autosomes

== ENCOUNTER → 2024-06-07 | Outpatient (CLI) | payer OTHER, MEDICAID ==
[2024-06-07 11:31] LABS: BASO # 0.1 10^3/uL (0.0-0.2); BASO % 0.7 % (0.0-1.0); EOS # 0.4 10^3/uL (0.0-0.5); EOS % 4.9 % (0.0-3.0); HEMATOCRIT 43.9 % (36.0-47.0); HEMOGLOBIN 14.7 g/dl (12.0-15.5); LYMPH # 2.6 10^3/uL (1.5-5.0); LYMPH % 34.7 % (24.0-44.0); MEAN CORPUSCULAR HEMOGLOBIN 30.2 pg (27.0-33.0); MEAN CORPUSCULAR HGB CONC 33.5 g/dl (32.0-36.5); MEAN CORPUSCULAR VOLUME 90.1 fl (80.0-96.0); MONO # 0.4 10^3/uL (0.0-0.8); MONO % 5.1 % (2.0-8.0); NEUTROPHILS % 54.3 % (36.0-66.0); PLATELET COUNT, AUTOMATED 260 10^3/uL (150-450); RED BLOOD COUNT 4.87 10^6/uL (4.00-5.40); WHITE BLOOD COUNT 7.4 10^3/uL (4.0-10.0)
[2024-06-07 12:24] LABS: ALBUMIN 3.4 G/DL (3.2-5.2); ALKALINE PHOSPHATASE 52 U/L (46-116); ALT/SGPT 24 U/L (7.0-40); AST/SGOT 37 U/L (<34); BLOOD UREA NITROGEN 10 MG/DL (9-23); CALCIUM LEVEL 9.6 MG/DL (8.5-10.1); CARBON DIOXIDE LEVEL 26 MMOL/L (20-31); CHLORIDE LEVEL 102 MMOL/L (98-107); CHOLESTEROL LEVEL 222 MG/DL (<200); CHOLESTEROL RISK RATIO 5.79 (<5); CREATININE FOR GFR 0.54 MG/DL (0.55-1.30); GLOMERULAR FILTRATION RATE > 60.0 (>60); GLUCOSE, FASTING 108 MG/DL (60-100); HDL CHOLESTEROL 38.3 MG/DL (>40); IRON (FE) 128 UG/DL (50-170); LDL CHOLESTEROL 132.9 MG/DL (<100); MAGNESIUM LEVEL 1.6 MG/DL (1.8-2.4); NON-HDL-C 183.7 MG/DL; PERCENT SATURATION 30.8 % (13.2-45.0); POTASSIUM SERUM 4.6 MMOL/L (3.5-5.1); SODIUM LEVEL 136 MMOL/L (136-145); TOTAL IRON BINDING CAPACITY 415 UG/DL (250-425); TOTAL PROTEIN 6.8 G/DL (5.7-8.2); TRIGLYCERIDES LEVEL 254 MG/DL (<150)
[2024-06-07 12:26] LABS: FERRITIN 50.8 NG/ML (7.3-270.7); FREE T4 1.27 NG/DL (0.89-1.76); THYROID STIMULATING HORMONE 1.846 uIU/ML (0.55-4.78); TOTAL 25(OH) VITAMIN D 59.1 NG/ML (20.0-100.0)
[2024-06-07 12:42] LABS: HEMOGLOBIN A1c 6.5 % (4.0-6.0)
== END ==
LOC: M LAB 10:39
PROVIDERS: ATTEND Physician Assistant
DX: Z86.2 Personal history of diseases of the blood and blood-forming organs and certain disorders involving the immune mechanism (principal); R79.89 Other specified abnormal findings of blood chemistry; E11.9 Type 2 diabetes mellitus without complications; E83.42 Hypomagnesemia

== ENCOUNTER → 2024-07-04 | Outpatient (REF) | payer OTHER, MEDICAID | LOC: M SFHCDERM 08:10 | PROVIDERS: ATTEND Physician Assistant | DX: L57.0 Actinic keratosis (principal) ==

== ENCOUNTER → 2024-09-05 | Outpatient (CLI) | payer OTHER, MEDICAID ==
[~2024-09-05] MED LIST changes: +HYOS0.3723 PO; -HYOS0.374 PO; -POTA10808 PO; +POTA10809 PO
== END ==
LOC: M RAD 07:38
PROVIDERS: ATTEND Internal Medicine Gastroenterology
DX: R10.9 Unspecified abdominal pain (principal)

== ENCOUNTER → 2024-09-26 | Outpatient (CLI) | payer OTHER, MEDICAID ==
[~2024-09-26] MED LIST changes: +PROHANCE 279.3MG/ML 15ML VIAL As Ordered ONE; +PROHANCE 279.3MG/ML 5ML VIAL As Ordered ONE
== END ==
LOC: M RAD 08:13
PROVIDERS: ATTEND Internal Medicine Gastroenterology
DX: R93.2 Abnormal findings on diagnostic imaging of liver and biliary tract (principal)

== ENCOUNTER → 2024-10-03 | Outpatient (CLI) | payer OTHER, MEDICAID ==
[~2024-10-03] MED LIST changes: -PROHANCE 279.3MG/ML 15ML VIAL As Ordered ONE; -PROHANCE 279.3MG/ML 5ML VIAL As Ordered ONE
[2024-10-03 12:54] LABS: HEMATOCRIT 39.7 % (36.0-47.0); HEMOGLOBIN 13.3 g/dl (12.0-15.5); MEAN CORPUSCULAR HEMOGLOBIN 30.3 pg (27.0-33.0); MEAN CORPUSCULAR HGB CONC 33.5 g/dl (32.0-36.5); MEAN CORPUSCULAR VOLUME 90.4 fl (80.0-96.0); PLATELET COUNT, AUTOMATED 229 10^3/uL (150-450); RED BLOOD COUNT 4.39 10^6/uL (4.00-5.40); WHITE BLOOD COUNT 7.2 10^3/uL (4.0-10.0)
[2024-10-03 13:24] LABS: ALBUMIN 3.2 G/DL (3.2-5.2); ALKALINE PHOSPHATASE 57 U/L (35-104); ALT/SGPT 20 U/L (7.0-40); AST/SGOT 26 U/L (<34); BILIRUBIN,TOTAL 0.7 MG/DL (0.3-1.2); BLOOD UREA NITROGEN 11 MG/DL (9-23); CALCIUM LEVEL 9.3 MG/DL (8.5-10.1); CARBON DIOXIDE LEVEL 26 MMOL/L (20-31); CHLORIDE LEVEL 103 MMOL/L (98-107); CREATININE FOR GFR 0.54 MG/DL (0.55-1.30); GLOMERULAR FILTRATION RATE > 60.0 (>60); GLUCOSE, FASTING 205 MG/DL (60-100); IRON (FE) 93 UG/DL (50-170); MAGNESIUM LEVEL 1.4 MG/DL (1.8-2.4); PERCENT SATURATION 23.7 % (13.2-45.0); POTASSIUM SERUM 4.7 MMOL/L (3.5-5.1); SODIUM LEVEL 139 MMOL/L (136-145); TOTAL IRON BINDING CAPACITY 392 UG/DL (250-425); TOTAL PROTEIN 6.7 G/DL (5.7-8.2)
[2024-10-03 13:26] LABS: FERRITIN 48.7 NG/ML (7.3-270.7); FREE T4 1.16 NG/DL (0.89-1.76); THYROID STIMULATING HORMONE 1.285 uIU/ML (0.55-4.78); TOTAL 25(OH) VITAMIN D 42.6 NG/ML (20.0-100.0)
== END ==
LOC: M LAB 12:07
PROVIDERS: ATTEND Nurse Practitioner Family
DX: E83.42 Hypomagnesemia (principal); Z86.2 Personal history of diseases of the blood and blood-forming organs and certain disorders involving the immune mechanism; E55.9 Vitamin D deficiency, unspecified; R79.89 Other specified abnormal findings of blood chemistry

== ENCOUNTER → 2024-10-07 | Outpatient (CLI) | payer OTHER, MEDICAID | LOC: M PLAIMG 08:06 | PROVIDERS: ATTEND Nurse Practitioner Family | DX: M95.2 Other acquired deformity of head (principal); G43.709 Chronic migraine without aura, not intractable, without status migrainosus ==

== ENCOUNTER → 2024-11-04 | Outpatient (REF) | payer OTHER, MEDICAID | LOC: M SFHCPLAZ 17:10 | PROVIDERS: ATTEND Nurse Practitioner Family | DX: R19.7 Diarrhea, unspecified (principal) ==

== ENCOUNTER → 2024-12-09 | Outpatient (CLI) | payer OTHER, MEDICAID | LOC: M PLAIMG 15:59 | PROVIDERS: ATTEND Student in an Organized Health Care Education/Training Program | DX: S69.91XA Unspecified injury of right wrist, hand and finger(s), initial encounter (principal); Y93.9 Activity, unspecified; Y92.9 Unspecified place or not applicable ==

== ENCOUNTER → 2025-01-06 | Outpatient (REF) | payer OTHER, MEDICAID ==
[~2025-01-06] MED LIST changes: -FLOM0.4C39 PO; +TAMS-18 PO
== END ==
LOC: M SFHCPLAZ 11:54
PROVIDERS: ATTEND Nurse Practitioner Family
DX: R19.5 Other fecal abnormalities (principal)

== ENCOUNTER → 2025-03-27 | Outpatient (CLI) | payer OTHER, MEDICAID ==
[2025-03-27 14:26] LABS: ESTIMATED AVERAGE GLUCOSE 157.0 MG/DL (60-110)
== END ==
LOC: M PLALAB 11:05
PROVIDERS: ATTEND Nurse Practitioner Family
DX: E11.9 Type 2 diabetes mellitus without complications (principal); R35.0 Frequency of micturition

== ENCOUNTER → 2025-04-24 | Outpatient (CLI) | payer OTHER, MEDICAID ==
[~2025-04-24] MED LIST changes: +GADOXETATE DISODIUM 2.5 MMOL/10 ML VIAL ONE; -IBUP1TAB6 PO; +SFHIBU600 PO
== END ==
LOC: M PLAIMG 07:42
PROVIDERS: ATTEND Internal Medicine Gastroenterology
DX: R93.2 Abnormal findings on diagnostic imaging of liver and biliary tract (principal); K76.0 Fatty (change of) liver, not elsewhere classified
CPT/HCPCS: 74183; A9581

== ENCOUNTER → 2025-04-28 | Outpatient (CLI) | payer OTHER, MEDICAID ==
[~2025-04-28] MED LIST changes: -GADOXETATE DISODIUM 2.5 MMOL/10 ML VIAL ONE
== END ==
LOC: M RAD 10:23
PROVIDERS: ATTEND Internal Medicine Gastroenterology
DX: D50.9 Iron deficiency anemia, unspecified (principal); R93.2 Abnormal findings on diagnostic imaging of liver and biliary tract
CPT/HCPCS: 78803; A9541; A9560

== ENCOUNTER → 2025-05-12 | Outpatient (CLI) | payer OTHER, MEDICAID ==
[~2025-05-12] MED LIST changes: +GLIM1TAB84 PO; +MAGN64TASA PO; +PANT20TA6 PO; +TRIA1CR80 TOP
== END ==
LOC: M LAB 09:24
PROVIDERS: ATTEND Internal Medicine Gastroenterology
DX: R93.2 Abnormal findings on diagnostic imaging of liver and biliary tract (principal)

== ENCOUNTER → 2025-05-12 | Outpatient (REF) | payer OTHER, MEDICAID | LOC: M SFHCPLAZ 09:41 | PROVIDERS: ATTEND Nurse Practitioner Family | DX: R19.7 Diarrhea, unspecified (principal) ==

== ENCOUNTER → 2025-05-12 | Outpatient (CLI) | payer OTHER, MEDICAID ==
[2025-05-12 10:21] LABS: PLATELET COUNT, AUTOMATED 256 10^3/uL (150-450)
[2025-05-12 10:35] LABS: INR 0.95
== END ==
LOC: M LAB 09:22
PROVIDERS: ATTEND Registered Nurse School
DX: R93.2 Abnormal findings on diagnostic imaging of liver and biliary tract (principal)

== ENCOUNTER → 2025-05-15 | Outpatient (CLI) | payer OTHER, MEDICAID ==
[2025-05-15 14:22] LABS: PLATELET COUNT, AUTOMATED 288 10^3/uL (150-450)
[2025-05-15 14:57] LABS: ALT/SGPT 39 U/L (7.0-40); AST/SGOT 41 U/L (<34); CALCIUM LEVEL 9.2 MG/DL (8.5-10.1); CARBON DIOXIDE LEVEL 27 MMOL/L (20-31); CHLORIDE LEVEL 102 MMOL/L (98-107); CREATININE FOR GFR 0.57 MG/DL (0.55-1.30); GLOMERULAR FILTRATION RATE > 90.0 (>60); POTASSIUM SERUM 4.8 MMOL/L (3.5-5.1); SODIUM LEVEL 138 MMOL/L (136-145)
== END ==
LOC: M PLALAB 12:01
PROVIDERS: ATTEND Nurse Practitioner Family
DX: A04.5 Campylobacter enteritis (principal)

== ENCOUNTER → 2025-05-16 | Outpatient (CLI) | payer OTHER, MEDICAID ==
[~2025-05-16] MED LIST changes: +ACETAMINOPHEN 325 MG TAB PO PRN; +PERCOCET 5MG/325MG TAB PO PRN
[2025-05-16 12:23] VITALS: TEMP 98.5
[2025-05-16] MEDS: MIDAZOLAM INJ 2 MG/2 ML VIAL IV PRN (13:42)
[2025-05-16] MEDS: LIDOCAINE 1% MDV 20 ML VIAL SC SCH (13:42)
[2025-05-16] MEDS: NS (Normal Saline) 0.9% 1,000 ML IV SCH (13:43)
[2025-05-16 14:15] VITALS: BP 114/71; O2SAT 96
== END ==
LOC: M IRPRO 12:14
PROVIDERS: ATTEND Internal Medicine Gastroenterology
DX: R93.2 Abnormal findings on diagnostic imaging of liver and biliary tract (principal)
CPT/HCPCS: 47000; 76942; 88305; J2250; J3010

== ENCOUNTER → 2025-06-12 | Outpatient (CLI) | payer OTHER, MEDICAID ==
[~2025-06-12] MED LIST changes: -ACETAMINOPHEN 325 MG TAB PO PRN; -PERCOCET 5MG/325MG TAB PO PRN
[2025-06-12 15:58] LABS: ESTIMATED AVERAGE GLUCOSE 160.0 MG/DL (60-110)
== END ==
LOC: M PLALAB 13:20
PROVIDERS: ATTEND Nurse Practitioner Family
DX: E11.9 Type 2 diabetes mellitus without complications (principal)

== ENCOUNTER → 2025-08-04 | Outpatient (CLI) | payer OTHER, MEDICAID | LOC: M RAD 11:39 | PROVIDERS: ATTEND Nurse Practitioner Family | DX: M79.89 Other specified soft tissue disorders (principal) ==